=== PATIENT | female | born 1990 | race African-American/Black ===

== ENCOUNTER 2017-01-24 22:21 | Emergency (ER) | payer MEDICAID ==
[~2017-01-24] VITALS: Ht 170.2 cm; Wt 68.0 kg
--- NOTE | 2017-01-24 22:50 | NUR ---
ASSUME PT CARE. SENT FROM [facility] FOR MEDICAL CLEARANCE PRIOR TO VOLUNTARY PSYCH ADMISSION. C/O CHRONIC L KNEE PAIN FROM ARTHRITIS. AAOX3. STABLE VITALS. AWAITING MD BELLO.
--- NOTE | 2017-01-24 22:56 | NUR ---
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
[2017-01-24 23:09] LABS: BASOPHILS # (AUTO) 0.1 /CMM (0.0-0.2); BASOPHILS % (AUTO) 0.5 % (0.0-2.0); EOSINOPHILS # (AUTO) 0.2 /CMM (0.0-0.7); EOSINOPHILS % (AUTO) 1.6 % (0.0-6.0); HEMATOCRIT 37 % (33-45); HEMOGLOBIN 12.3 g/dL (11.5-14.8); LYMPHOCYTES # (AUTO) 2.9 /CMM (0.8-4.8); LYMPHOCYTES % (AUTO) 19.2 % (20.0-44.0); MEAN CORPUSCULAR HEMOGLOBIN 29 PG (26.0-33.0); MEAN CORPUSCULAR HGB CONC 33 g/dl (31.0-36.0); MEAN CORPUSCULAR VOLUME 87 fL (82-100); MONOCYTES # (AUTO) 1.3 /CMM (0.1-1.30); MONOCYTES % (AUTO) 8.9 % (2.0-12.0); NEUTROPHILS # (AUTO) 10.5 /CMM (1.8-8.9); NEUTROPHILS % (AUTO) 69.8 % (43.0-81.0); PLATELET COUNT (AUTO) 301 /CMM (150-450); RDW COEFFICIENT OF VARIATION 15.2 (11.5-15.0); RED BLOOD CELL COUNT(AUTO) 4.32 MIL/uL (4.0-5.2); WHITE BLOOD COUNT (AUTO) 15.1 K/uL (4.3-11.0)
[2017-01-24 23:16] LABS: APPEARANCE,URINE CLEAR (CLEAR); BILIRUBIN,URINE NEGATIVE (NEGATIVE); BLOOD, URINE NEGATIVE Ery/uL (NEGATIVE); COLOR,URINE YELLOW (YELLOW); KETONES,URINE NEGATIVE (NEGATIVE); LEUKOCYTE ESTERASE ,URINE 3+ (NEGATIVE); NITRITE, URINE NEGATIVE (NEGATIVE); PROTEIN,URINE NEGATIVE (NEGATIVE); UGLUCOSE NEGATIVE (NEGATIVE); UROBILINOGEN,URINE 0.2 EU/dL (0.2)
[2017-01-24 23:22] LABS: PREGNANCY TEST URINE QUAL NEGATIVE (NEGATIVE); RBC,URINE NONE SEEN /HPF (0-2)
[2017-01-24 23:26] LABS: BACTERIA,URINE None seen /HPF (None Seen); SQUAMOUS EPITHELIAL CELL,UR Moderate /HPF (None Seen)
[2017-01-24 23:29] LABS: CALCIUM, SERUM 8.8 mg/dL (8.5-10.1); CARBON DIOXIDE 29 mmol/L (21-32); CHLORIDE 103 mmol/L (98-107); CREATININE 0.9 mg/dL (0.6-1.3); GLUCOSE 78 mg/dL (74-106); POTASSIUM 3.6 mmol/L (3.5-5.1); SODIUM SERUM 141 mmol/L (136-145); UREA NITROGEN, BLOOD 13 mg/dL (7-18)
[2017-01-24 23:34] LABS: ALANINE AMINOTRANSFERASE 30 U/L (12-78); ALCOHOL, BLOOD < 3 mg/dL (0-0); ALKALINE PHOSPHATASE 87 U/L (46-116); ASPARTATE AMINOTRANSFERASE 30 U/L (15-37); BILIRUBIN,TOTAL 0.2 mg/dL (0.2-1.0); TOTAL PROTEIN, SERUM 7.8 g/dL (6.4-8.2)
--- NOTE | 2017-01-24 23:35 | NUR ---
[facility] SO BONG BOND INTAKE VERIFED PT HAS BED RESERVED. WILL FAX [phone] ALL TEST RESULTS TO ATT: INTAKE.
[2017-01-24 23:36] LABS: ACETAMINOPHEN 0 ug/ml (10-30)
--- NOTE | 2017-01-24 23:44 | NUR ---
Patient ambulatory w/ steady gait, resp even & unlabored, medically cleared and discharged to [facility] in stable condition. Written and verbal after care instructions given. Patient verbalizes understanding of instruction.
[2017-01-24 23:47] VITALS: BP 116/72
== END 2017-01-24 23:48 | disposition home or self-care (01) ==
LOC: ER 22:22
DX: F32.9 Major depressive disorder, single episode, unspecified (principal); N39.0 Urinary tract infection, site not specified; G89.29 Other chronic pain; Z59.0 Homelessness; F17.200 Nicotine dependence, unspecified, uncomplicated
CPT/HCPCS: 36415; 80048-TC; 80076-TC; 80305; 81000-TC; 84703-TC; 85025-TC; 87086-TC; A4606; G0480; Z7610

== ENCOUNTER 2019-04-17 17:57 | Emergency (ER) | payer MEDICAID ==
[~2019-04-17] VITALS: Ht 170.2 cm; Wt 85.3 kg
--- NOTE | 2019-04-17 17:59 | NUR ---
PT [id number] FRM A BUS STOP. [employer] WAS CALLED. FOR SUSPECTED ALCOHOL INTOXICATION. PT IS AAOX3 ADMITS TO ALCOHOL AND SMOKING MARIJUANA. DENIES SI/HI. PLACED ON MONITOR. VSS. AWAITING MD BELLO.
--- NOTE | 2019-04-17 19:15 | NUR ---
Pt resting in gurney. No signs of distress noted. pt vital signs stable. pt easily arousable will ton to monitor opt.
--- NOTE | 2019-04-18 00:24 | NUR ---
pt sleeping in gurney. no signs of distress noted. pt vital signs stable. pt easily arousable. breaths equal and unlabored. will cont to monitor pt.
--- NOTE | 2019-04-18 05:55 | NUR ---
pt ok to discharge home per dr guevara. Patient discharged to home in stable condition. Written and verbal after care instructions given. Patient verbalizes understanding of instruction.Patient is awake and alert to self, day, and place. pt ambulatory with a steady gait
[2019-04-18 06:47] VITALS: BP 118/65
== END 2019-04-18 06:48 | disposition home or self-care (01) ==
LOC: ER 17:58
DX: F10.10 Alcohol abuse, uncomplicated (principal); F31.9 Bipolar disorder, unspecified; F20.9 Schizophrenia, unspecified; F17.210 Nicotine dependence, cigarettes, uncomplicated; Y90.9 Presence of alcohol in blood, level not specified; Z59.0 Homelessness; Z88.8 Allergy status to other drugs, medicaments and biological substances